=== PATIENT | male | born 1955 | race Caucasian/White ===

== ENCOUNTER 2024-03-01 11:46 | Outpatient (CLI) | payer MEDICARE, OTHER ==
[~2024-03-01 11:46] MED LIST: ASPI-612 PO; ATOR20TA PO; DUTA0.5C40 PO; FLO0.4C PO; GABA300C PO; HYDR-3973 PO; HYDR12.55 PO; LISI20TA28 PO; METO50TA16 PO
== END 2024-03-01 23:59 | disposition home or self-care (01) ==
LOC: MRI02 11:46
PROVIDERS: ATTEND Podiatrist Foot & Ankle Surgery
DX: M19.071 Primary osteoarthritis, right ankle and foot (principal); M25.471 Effusion, right ankle; M20.21 Hallux rigidus, right foot; M79.671 Pain in right foot
CPT/HCPCS: 73721